=== PATIENT | female | born 1990 | race Caucasian/White ===

== ENCOUNTER 2016-11-09 11:46 | Emergency (ER) | payer OTHER ==
[2016-11-09 12:02] VITALS: BP 128/64; PULSE 89; RESP 20; TEMP 98.1
--- NOTE | 2016-11-09 12:31 | ED ---
Extremity Problem HPI - General Chief complaint: Extremity Problem,Nontraumatic Stated complaint: possible rt leg blood clot Time Seen by Provider: 11/09/16 12:06 Source: patient, RN notes reviewed Mode of arrival: ambulatory Limitations: no limitations - History of Present Illness Initial comments: 26-year-old female presents to the emergency Department chief complaint of redness and pain over right varicose vein. Patient states that this started today when she got out of the shower. Patient states some discharge and some redness. Patient states she is always had this on her right leg ever since she was young. Patient states she's never had problems with it before. Patient denies any full leg swelling. Patient denies any calf pain any shortness of breath or chest pain with this.Patient denies any recent fever, chills, shortness of breath, chest pain, back pain, abdominal pain, nausea vomiting, numbness or tingling, dysuria or hematuria, constipation or diarrhea, headaches or visual changes, or any other current symptoms. - Related Data Home Medications Medication Instructions Recorded Confirmed No Known Home Medications [No 11/09/16 11/09/16 Known Home Medications] Allergies Allergy/AdvReac Type Severity Reaction Status Date / Time No Known Allergies Allergy Verified 11/09/16 12:02 Review of Systems ROS Statement: Those systems with pertinent positive or pertinent negative responses have been documented in the HPI. ROS Other: All systems not noted in ROS Statement are negative. Past Medical History Past Medical History: No Reported History Additional Past Medical History / Comment(s): Obstetric history: First was a vaginal delivery in 2009, 7#3oz. Her second was an SAB. Third she had a vaginal delivery in 2012, 6#10 oz. This is her fourth . She has had care with tx since 8 weeks gestation. A+ , abs neg, Rub Imm, RPR NR, Hep B neg, normal anatomy US, normal 1hr GTT. GBS neg. History of Any Multi-Drug Resistant Organisms: None Reported Past Surgical History: No Surgical Hx Reported Past Anesthesia/Blood Transfusion Reactions: No Reported Reaction Past Psychological History: No Psychological Hx Reported Smoking Status: Current every day smoker Past Alcohol Use History: Rare Past Drug Use History: None Reported General Exam Limitations: no limitations General appearance: alert, in no apparent distress Head exam: Present: atraumatic, normocephalic, normal inspection Neck exam: Present: normal inspection. Absent: tenderness, meningismus, lymphadenopathy Respiratory exam: Present: normal lung sounds bilaterally. Absent: respiratory distress, wheezes, rales, rhonchi, stridor Cardiovascular Exam: Present: regular rate, normal rhythm, normal heart sounds. Absent: systolic murmur, diastolic murmur, rubs, gallop, clicks Extremities exam: Present: normal inspection, full ROM, normal capillary refill , other (Patient does appear to have a tender varicose vein to the right lower extremity). Absent: tenderness, pedal edema, joint swelling, calf tenderness Back exam: Present: normal inspection Psychiatric exam: Present: normal affect, normal mood Skin exam: Present: warm, dry, intact, normal color. Absent: rash Course Vital Signs 11/09/16 11:59 Temperature 98.1 F Pulse Rate 89 Respiratory 20 Rate Blood Pressure 128/64 O2 Sat by Pulse 98 Oximetry Medical Decision Making - Medical Decision Making 26-year-old female presents with what appears to be a superficial thrombophlebitis. At this time we discussed supportive care. We discussed Motrin Tylenol for pain warm compresses. We discussed return parameters and follow-up. Patient stated that she understood all questions have been answered. She will be discharged home. Disposition Clinical Impression: Superficial thrombophlebitis Disposition: HOME SELF-CARE Condition: Stable Instructions: Superficial Thrombophlebitis (ED) Additional Instructions: Please use medication as discussed. Please follow up with family doctor if symptoms have not improved over the next two days. Please return to the emergency room if your symptoms increase or worsen or for any other concerns. Referrals: Claudia Domínguez MD [STAFF PHYSICIAN] - 1-2 days Time of Disposition: 12:30
== END 2016-11-09 12:43 | disposition home or self-care (01) ==
LOC: EC 11:46
DX: I80.01 Phlebitis and thrombophlebitis of superficial vessels of right lower extremity (principal); I83.91 Asymptomatic varicose veins of right lower extremity; F17.200 Nicotine dependence, unspecified, uncomplicated
CPT/HCPCS: 99283